=== PATIENT | male | born 1945 | race Caucasian/White ===

== ENCOUNTER → 2020-11-04 | Outpatient (CLI) | payer MEDICARE, OTHER ==
[~2020-11-04] MED LIST: ACETAMINOPHEN325 M1 PO; ASPIRIN EC81 M1 PO; DIAZEPAM 5 MG5 M1 PO; FLOMAX0.4 MG PO; LISINOPRIL10 MG PO; NITROGLYCERIN0.4 MG SUBLING; PLAVIX 75 MG TA75 MG PO; SIMVASTATIN10 MG PO; SIMVASTATIN5 MG PO; SIMVASTATIN80 MG PO; ULTRAM 50MG TAB50 MG PO; ZOLOFT 50 MG TA50 M1 PO; ZOLOFT100 MG PO
--- NOTE | 2020-11-05 09:38 | CARDNUC ---
[place] [address] CARDIAC NUCLEAR IMAGING REPORT Name: ERNESTO CLARK Room: [facility]#: [id number] Admission: 11/04/20 Attend Phys: Mandie Galvez, Discharge: Date of : 43 Date of Service: 11/05/20 0937 Report #: [id number] THIS REPORT FOR: cc: JUAN M PATIÑO MD, HERBERT A. MD Park, Jin S. MD ~ APPROVED REPORT Imaging Protocol: Rest Tc-99m/Stress Tc-99m 1 day Study performed: 11/04/2020 12:15:00 Indication: CAD, ABN EKG. 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 Medications: ASA 81 MG, Lisinopril, Simvastatin, NTG. Allergies: Morphine Cardiac Risk Factors: Age, FHX of CAD, HTN, Hyperlipidemia, Past Smoker, sinus bradycardia with 1st Deg. AV Block. ABN EKG. Previous Cardiac Procedures: CABG, PCI. Pretest Chest Pain Characteristics: No chest pain Exercise History: Physically active Physical Disabilities: None noted. Meds Held (24 hrs): NTG Resting Data Rest SPECT myocardial perfusion imaging was performed in supine position 30 minutes following the intravenous injection of 10.0 mCi of Tc-99m Sestamibi. Time of rest injection: 1240 Date: 11/04/2020 The images were gated to evaluate regional wall motion and calculate left ventricular ejection fraction. Administration Route: IV Administration Site: [place] [address] CARDIAC NUCLEAR IMAGING REPORT Name: ERNESTO CLARK Room: [facility]#: [id number] Admission: 11/04/20 Attend Phys: Mandie Galvez, Discharge: Date of : 43 Date of Service: 11/05/20 0937 Report #: [id number] Exercise Stress At peak stress, the patient was injected intravenously with 34.2mCi of Tc-99m Sestamibi. Time of stress injection: 1410 Date: 11/04/2020 Administration Route: IV Administration Site: Right Wrist Gated Stress SPECT was performed 30 minutes after stress injection. The images were gated to evaluate regional wall motion and calculate left ventricular ejection fraction. Prone imaging was performed. Stress Test Details Stress Test: Exercise stress testing was performed using a Nik protocol. HR Max Heart Rate (APMHR): 144 bpm Resting HR: 58 bpm Target HR (85% APMHR): 122 bpm Max HR Achieved: 169 bpm % of APMHR: 117 Recovery HR: 75 bpm BP Resting BP: 119/74 mmHg Max BP: 167/79 mmHg Recovery BP: 109/68 mmHg ECG Resting ECG: Sinus Rhythm Stress ECG: Sinus Rhythm ST Change: Non-ischemic Clinical Reason for Termination: Completed protocol, Maximal effort Stress Symptoms: Dyspnea, Fatigue. Exercise duration: 9 min 50 sec Exercise capacity: 11.53 METs Overall Exercise Capacity for Age: Superior Nurse Comments Patient tolerated a treadmill nuclear stress test through stage 3. Patient was stable and stated he felt good when escorted to Nuclear Medicine for imaging. Study Quality Study: Good Artifact: [place] [address] CARDIAC NUCLEAR IMAGING REPORT Name: AGGIEAVELERNESTO SANDRO Room: [facility]#: [id number] Admission: 11/04/20 Attend Phys: Mandie Galvez, Discharge: Date of : 43 Date of Service: 11/05/20 0937 Report #: [id number] Study Data Post stress, the left ventricular ejection was 86%.. SSS: 0 SRS: 0 SDS: 0 TID = 0.54. Perfusion There is a medium area of moderately reduced uptake in the basal and mid segment of the inferior wall which is seen on the stress images and improves on the resting images. This area thickens and moves normally and is most consistent with ischemia. Wall Motion Normal left ventricular wall motion. Nuclear Conclusion ECG Findings: negative for ischemia Clinical Findings: negative for ischemia Nuclear Findings: positive for ischemia Exercise Capacity: normal Left Ventricular Function: normal There is a predominantly reversible defect in the mid to basal inferior wall, suggestive for ischemia. There is normal global and segmental LV systolic function. <ELECTRONICALLY SIGNED> By: Devaughn Bernal MD 11/05/2037 6 6 Devaughn Bernal MD /INF
== END ==
LOC: M.NUC 10-30 14:01
PROVIDERS: ATTEND Nurse Practitioner
DX: I25.89 Other forms of chronic ischemic heart disease (principal); I25.10 Atherosclerotic heart disease of native coronary artery without angina pectoris

== ENCOUNTER → 2020-12-16 | Outpatient (CLI) | payer MEDICARE, OTHER ==
[2020-12-16] VITALS (8 sets, daily range): BP systolic 102–124; BP diastolic 50–60
[~2020-12-16] VITALS: Ht 177.8 cm; Wt 76.7 kg
[~2020-12-16] MED LIST changes: +ZOCOR20 MG PO; +ZOLOFT50 M1 PO
[2020-12-16 10:07] LABS: HEMOGLOBIN 16.5 gm/dL (14.0-18.0); MCH 29.2 pg (26.0-34.0); MCHC 33.6 g/dL (28.0-37.0); MCV 86.9 fL (80.0-100.0); MPV 7.3 fl. (7.2-11.1); RBC 5.63 mil/uL (4.50-6.00); RDW-CV 14.3 % (10.5-14.5); WBC 5.7 thou/uL (4.0-11.0)
[2020-12-16 10:23] LABS: ANION GAP 9 mmol/L (7-16); BUN 23 mg/dL (7-18); CALCIUM 9.3 mg/dL (8.5-10.1); CHLORIDE 103 mmol/L (98-107); CO2 30 mmol/L (21-32); CREATININE 1.2 mg/dL (0.6-1.3); GLUCOSE 111 mg/dL (70-99); POTASSIUM 3.7 mmol/L (3.5-5.1); SODIUM 142 mmol/L (136-145)
--- NOTE | 2020-12-16 10:26 | EKG ---
[place] [address] ELECTROCARDIOGRAM REPORT Name: ERNESTO CLARK Room: [facility]#: [id number] Admission: 12/16/20 Attend Phys: Clark Velazquez MD Discharge: Date of : 43 Date of Service: 12/16/2046 Report #: [id number] THIS REPORT FOR: //name// [facility] Test Date: 2020-12-16 Test Time: 09:46:13 Pat Name: ERNESTO CLARK Department: Room: Gender: [place] Pruner: : 1945 Requested By: Clark Velaqzuez Order Number: [id number] Matthew MD: Clark Velazquez Measurements Intervals [place] Rate: 57 P: 67 GA: 207 QRS: 17 QRSD: 91 T: 29 QT: 401 QTc: 391 Interpretive Statements Sinus rhythm Probable left atrial enlargement Low voltage, precordial leads No previous ECG available for comparison Electronically Signed On 12-16-2020 10:26:25 CDT by Clark Velazquez [email or web address] <ELECTRONICALLY SIGNED> By: Clark Velazquez MD, [facility] 12/16/20 1026 5 5 Clark Velazquez MD, [facility] /EPI
[2020-12-16 10:27] LABS: ALKALINE PHOSPHATASE 86 U/L (46-116); CHOLESTEROL 137 mg/dL (<200); HDL CHOLESTEROL 55 mg/dL (>40); LDL CHOLESTEROL 68 mg/dL (<100); SGOT 24 U/L (15-37); SGPT 48 U/L (30-65); TC:HDL 2.5 Ratio (Not establshd); TOTAL BILIRUBIN 0.6 mg/dL (<0.1-1.0); TOTAL PROTEIN 7.5 g/dL (6.4-8.2); TRIGLYCERIDE 71 mg/dL (<150); VLDL 14 mg/dL (<40)
[2020-12-16 10:28] LABS: SERUM ASSESSMENT Clear
[2020-12-16 10:34] LABS: APTT 28.3 Seconds (25.0-31.3); INR 1.1; PROTIME 11.1 Seconds (9.20-11.50)
--- NOTE | 2020-12-16 14:04 | CARD ---
[address] [address] CARDIAC CATH REPORT Name: ERNESTO CLARK Room: [facility].#: [id number] Admission: 12/16/20 Attend Phys: Clark Velazquez MD, F Discharge: Date of : 43 Report #: [id number] THIS REPORT FOR: cc: JUAN M PATIÑO MD, HERBERT A. MD Blick,Clark Farmer MD [facility] ~ APPROVED REPORT Study performed: 12/16/2020 10:34:01 Patient Details Patient Status: Out-Patient Room #: The patient is a 75 year-old male Event Personnel Dr Velazquez, Angelika Cole RN, Judi Nelson RTR, Sharonda Sosa RTR Procedures Performed Left heart cath with grafts, LV Gram, and Aortic Root Angiography Indication Positive stress test, Chest pain Risk Factors Arterial Hypertension, Coronary Artery Disease Previous Procedures/Diagnoses Previous CABGPrevious PCI Procedure Narrative The patient was brought electively to the Cardiac Catheterization Laboratory and was prepped and draped in a sterile manner. The right femoral was infiltrated with 2% Lidocaine subcutaneous anesthesia. IV conscious sedation was used throughout procedure with appropriate monitoring and was performed in the presence of a registered nurse who was an independent trained observer other than the physician performing the procedure. A 6Fr [place] sheath was inserted into the right femoral artery. Coronary angiography was performed using coronary diagnostic catheters. The right coronary system was accessed and visualized with a Diagnostic 6Fr JR4 catheter. The left coronary system was accessed and visualized with a Diagnostic 6Fr JL4 catheter. The left ventricle was accessed and visualized with a [facility] [address] [address] CARDIAC CATH REPORT Name: AMBERERENSTO JO Room: [facility]#: [id number] Admission: 12/16/20 Attend Phys: Clark Velazquez MD, F Discharge: Date of : 43 Report #: [id number] Diagnostic 6Fr Pigtail catheter. Left ventricular/Aortic Valve gradient assessed via catheter pullback. Left ventriculogram was performed in MEDINA projection. An aortogram of the OTILIA was performed. Closure device was deployed with a 6 Fr Mynx. The patient tolerated the procedure well and there were no complications associated with the procedure. There was no hematoma. 6 Fr IM catheter was utilized for the MOY graft. JR4 6Fr catheter was used to access SVG to OM graft. The RCB 6Fr catheter and the MPA 6Fr catheter was used to attempt access to SVG. MPA catheter was used for a right immoniate artery flush injection which did not reveal that a FELISA used for a graft conduit. Pigtail catheter was used for an aortic root injection which revealed no aortic insufficiency, and only one pated SVG. Intraoperative Conscious Sedation Sedation start time: 1104 Case end Time: 1147 Fentanyl 25.0 mcg Versed 2.0 mg Fluoro Time: 9.4 minutes Dose: DAP 81334 cGycm2 978 mGy Contrast Type and Amount: Visipaque 210 ML Coronary Angiography The patient's coronary anatomy is right dominant. [place] Artery Percent Stenosis Grafts (Complete if Previous CABG=Yes: Percent Stenosis) Patent MOY graft to the LAD. Patent SVG noted with anastomsis to the first and second marginal branches of the circumflex artery. The SVG to the RCA appearred to be chronically occluded. Diagnostic Cath Left Main 90% stenosis LAD 100% stenosis Circumflex 90% proximal and 100% mid stenosis. Right Coronary Stent in the proximal RCA had a 0% restenosis. Left Ventriculography The left ventricular ejection fraction is estimated to be 60-65%. Left ventricular wall motion abnormalities are not present. There is no mitral insufficiency. Aortic root injection showed no aortic insufficiency, and only one [place] [address] CARDIAC CATH REPORT Name: ERNESTO CLARK Room: [facility]#: [id number] Admission: 12/16/20 Attend Phys: Clark Velazquez MD, F Discharge: Date of : 43 Report #: [id number] The aortic pressure is 111/47 mmHg with a mean of 71 mmHg. The left ventricular pressure is 107/10 mmHg with a mean of 9 mmHg. The left ventricular end diastolic pressure is 15 mmHg. There was no gradient across the aortic valve upon pullback. Pullback from the left ventricle to the aorta revealed no gradient across the aortic valve. Conclusion 1. Patent SVG to the first and second marginal branches of the circumflex artery. 2. Patent MOY graft to the LAD 3. Patent stent in the proximal RCA 4. Occluded SVG to the RCA 5. LVEF 60-65% Recommendations Aggressive Medical Therapy <ELECTRONICALLY SIGNED> By: Clark Velazquez MD, FACC 12/16/20 1404 1404 1404Dmonet Velazquez MD, FACC /INF
== END | disposition home or self-care (01) ==
LOC: M.CL 09:15
PROVIDERS: ATTEND Internal Medicine Cardiovascular Disease
DX: R07.9 Chest pain, unspecified (principal); R94.39 Abnormal result of other cardiovascular function study; I25.810 Atherosclerosis of coronary artery bypass graft(s) without angina pectoris; I10 Essential (primary) hypertension; Z95.1 Presence of aortocoronary bypass graft; Z98.890 Other specified postprocedural states; Z79.899 Other long term (current) drug therapy; Z88.8 Allergy status to other drugs, medicaments and biological substances; Z20.822 Contact with and (suspected) exposure to COVID-19